=== PATIENT | female | born 1990 | race Caucasian/White ===

== ENCOUNTER 2016-05-20 01:49 | Emergency (ER) | payer OTHER ==
[2016-05-20 01:42] LABS: URINE APPEARANCE CLEAR; URINE BILIRUBIN NEG (NEG); URINE BLOOD NEG (NEG); URINE COLOR YELLOW; URINE GLUCOSE NEG (NORM); URINE KETONE NEG (NEG); URINE LEUKOCYTE ESTERASE NEG (NEG); URINE NITRATE POS (NEG); URINE PH 6.5 (5-8); URINE PROTEIN NEG (NEG); URINE UROBILINOGEN 0.2 MG/DL (NORM)
[2016-05-20 01:44] LABS: MICRO INDICATED? YES
[~2016-05-20 01:49] MED LIST: AMOXICILLIN875 MG PO; AURALGAN EAR DR14 ML OT; LAMICTAL; MOTRIN600 M2 PO; NEO/POLYMYXIN/H10 M1 OT; NO MEDICATIONS; NORCO 5/325 TAB1 TAB PO; NORFLEX100 M1 PO; SEIZURE MEDS; TRILEPTAL
[2016-05-20 01:51] LABS: CULTURE INDICATED? YES; URINE BACTERIA 3+ (NEG); URINE MUCUS PRESENT; URINE SQUAMOUS EPITHELIAL CELL FEW /[HPF]
== END 2016-05-20 02:14 | disposition home or self-care (01) ==
LOC: SED 01:49
PROVIDERS: Emergency Medicine
DX: N92.0 Excessive and frequent menstruation with regular cycle (principal); F17.210 Nicotine dependence, cigarettes, uncomplicated
CPT/HCPCS: 81003; 84703; 87086; 87088; 87186; 96372; 99283; J1885

== ENCOUNTER 2016-05-29 | Emergency (ER) | payer OTHER | END 2016-05-29 00:02 | disposition home or self-care (01) | LOC: SED | DX: T78.49XA Other allergy, initial encounter (principal); F17.200 Nicotine dependence, unspecified, uncomplicated; Z91.030 Bee allergy status; X58.XXXA Exposure to other specified factors, initial encounter | CPT/HCPCS: 99282 ==

== ENCOUNTER 2016-10-01 05:29 | Emergency (ER) | payer OTHER ==
[~2016-10-01] VITALS: Ht 162.6 cm; Wt 133.8 kg
[2016-10-01 06:09] LABS: URINE SOURCE CLEAN CATCH
[2016-10-01 06:12] LABS: URINE APPEARANCE TURBID; URINE BILIRUBIN NEG (NEG); URINE BLOOD NEG (NEG); URINE COLOR YELLOW; URINE GLUCOSE NEG (NORM); URINE KETONE NEG (NEG); URINE LEUKOCYTE ESTERASE 1+ (NEG); URINE NITRATE POS (NEG); URINE PH 5.5 (5-8); URINE PROTEIN NEG (NEG); URINE SPECIFIC GRAVITY >=1.030 (1.003-1.035); URINE UROBILINOGEN 0.2 MG/DL (NORM)
[2016-10-01 06:14] LABS: MICRO INDICATED? YES
[2016-10-01 06:15] LABS: CULTURE INDICATED? YES; URINE BACTERIA 1+ (NEG); URINE CRYSTALS CALCIUM OXALATE /[HPF]; URINE MUCUS PRESENT; URINE SQUAMOUS EPITHELIAL CELL MODERATE /[HPF]; URINE TRANSITIONAL EPI CELLS FEW /[HPF]
[2016-10-01] MEDS ORDERED: ZOFRAN ODT4 MG PO (06:52)
== END 2016-10-01 06:45 | disposition home or self-care (01) ==
LOC: SED 05:29
DX: N39.0 Urinary tract infection, site not specified (principal); F17.200 Nicotine dependence, unspecified, uncomplicated; Z91.030 Bee allergy status
CPT/HCPCS: 81003; 84703; 87086; 87088; 87186; 99284